=== PATIENT | male | born 1935 | race Caucasian/White ===

== ENCOUNTER 2016-06-26 22:33 | Inpatient (IN) | payer OTHER ==
[~2016-06-26] VITALS: Ht 175.3 cm; Wt 80.1 kg
--- NOTE | 2016-06-26 22:58 | NUR ---
PT BIB ALS FOR RIB PAIN TO RIGHT SIDE. PER PT HE FELL AND BROKE A RIB ON HIS RIGHT SIDE A WEEK AGO. SINCE THEN HE HAS FALLEN MULTIPLE TIMES. THIS MORNING PT FELL INTO BED AND HURT HIS RIB, AT THIS TIME PT WAS UNABLE TO GET OUT OF BED WITH HELP FROM HIS . PT SET UP ON REGULATION SUPERVISOR, PULSE OX SET UP AT THIS TIME.
--- NOTE | 2016-06-26 23:02 | NUR ---
TECH AT BEDSIDE TO TAKE PT TO IMAGING.
[2016-06-26 23:21] LABS: microscopic required? NO
[2016-06-26 23:26] LABS: urine erythrocyte NEGATIVE (NEGATIVE)
[2016-06-26 23:31] LABS: BASOPHIL % 0.2 % (0-2); PLATELET COUNT 265 x10^3mcL (130-400); RED CELL DISTRIBUTION WIDTH 14.6 % (11.5-14.5)
[2016-06-26 23:47] LABS: CALCIUM 10.1 mg/dL (8.5-10.1); CARBON DIOXIDE 24.3 mmol/L (21-32); CHLORIDE SERUM 102 mmol/L (98-107); CREATININE SERUM 1.4 mg/dL (0.7-1.3); GLUCOSE SERUM 155 mg/dL (74-106); POTASSIUM SERUM 4.6 mmol/L (3.5-5.1); SODIUM SERUM 140 mmol/L (136-145)
[2016-06-26 23:51] LABS: ALBUMIN 3.5 g/dL (3.4-5.0); ALKALINE PHOSPHATASE 95 U/L (46-116); ALT/SGPT 23 U/L (16-63); AST/SGOT 16 U/L (15-37); BILIRUBIN TOTAL 0.5 mg/dL (0.20-1.00); CHOLESTEROL 135 mg/dL (<200); CHOLESTEROL/HDL RATIO 2.9; HDL CHOLESTEROL 46 mg/dL (40-60); LIPASE 143 IU/L (73-393); TOTAL PROTEIN, SERUM 6.8 g/dL (6.4-8.2); TRIGLYCERIDES 177 mg/dL (<150)
[2016-06-26 23:55] LABS: T3 TOTAL 1.05 ng/mL
--- NOTE | 2016-06-26 23:55 | NUR ---
20G TO R WRIST INITIATED AND FLUIDS INFUSING ORDERED. SEE EMAR.
[2016-06-26 23:59] LABS: FREE T4 1.01 ng/dL (0.76-1.46); T4(THYROXINE) 8.2 ug/dL (4.7-13.3)
[2016-06-27] VITALS (8 sets, daily range): BP systolic 113–180; BP diastolic 50–88
[2016-06-27] MEDS ORDERED: PAROXETINE HCL40 M1 PO (00:59)
[2016-06-27] MEDS ORDERED: METOPROLOL TART25 M1 PO (01:01)
[2016-06-27] MEDS ORDERED: TAMSULOSIN HYD0.4 M1 PO (01:02)
[2016-06-27] MEDS ORDERED: FINASTERIDE5 M1 PO (01:03)
[2016-06-27] MEDS ORDERED: OXYBUTYNIN CHLOR5 MG PO (01:04)
[2016-06-27] MEDS ORDERED: ATORVASTATIN CA40 M1 PO (01:06)
[2016-06-27] MEDS ORDERED: METFORMIN HCL500 MG PO (01:08)
[2016-06-27] MEDS ORDERED: GLIPIZIDE5 M2 PO (01:08)
[2016-06-27] MEDS ORDERED: LANTUS SOLOS100 U/M1 SC (01:09)
[2016-06-27] MEDS ORDERED: SIN25100 PO (01:10)
[2016-06-27] MEDS ORDERED: BETIMOL5 M1 OU (01:24)
[2016-06-27] MEDS ORDERED: CLONAZEPAM0.5 MG PO (01:25)
[2016-06-27] MEDS ORDERED: EXELON4.6 MG/21 PO (01:29)
--- NOTE | 2016-06-27 02:20 | NUR ---
PT ARRIVED ON THE FLOOR FROM ER VIA GUERNEY ACCOMPNIED BY 2 NURSES. PT IS ADMITTED W/ A C/O LT RIB PAIN S/P FALL 1 WEEK AGO. PT IS AWAKE, ALERT,ORIENTED X4 W/ CLEAR SPEECH. HE DENIES HAVINF HEADACHE AND DIZZINESS. PT NOTED W/ DIFFICULTY MOVING . PT NEEDED ASSISTANCE TO TURN FROM SIDE TO SIDE IN BED. PT STATED HE DOES NOT KNOW IF HE IS ABLE TO AMBULATE AT THIS TIME. PER PT HE USES WALKER AT HOME. W/ ECCHYMOSIS NOTED TO LT RIB AREA. PT STATED HE HAS AROUND 7/10 PAIN WHEN HE MOVES BUT COMFORTABLE WHEN HE JUST LAYS IN BED. PULSES STRONG AND PALPABLE. W/ IVF NS INFUSING VIA RT WRIST. PT ORIENTED TO ROOM AND INSTRUCTED ON THE USE OF CALL LIGHT.
--- NOTE | 2016-06-27 02:30 | NUR ---
GUARDED PT TRANSPORTED ON MONITOR VIA GURNEY TO [facility] BY JASMYN LOZANO AND JASMYN WEBER. PT AAOX4, NO SOB, RR EVEN AND UNLABORED.
--- NOTE | 2016-06-27 03:45 | NUR ---
SCDS APPLIED TO BLE ORDERED FOR DVT PROPHYLAXIS.
[2016-06-27 04:02] LABS: PHOSPHOROUS 1.7 mg/dL (2.5-4.9)
--- NOTE | 2016-06-27 04:14 | NUR ---
INFORMED DR. COLBERT THAT UNABLE TO DO ORTHOSTATIC V/S BECAUSE PT W/ DIFFICULTY MOVING IN BED AND HE IS UNABLE TO GET OOB AT THIS TIME.
--- NOTE | 2016-06-27 05:00 | NUR ---
LABETALOL 10 MG SLOW IV PUSH GIVEN ORDERED. HY=698/74 HR=64. PT AWAKE AND RESTINE MORE COMFORTABLY IN BED.
--- NOTE | 2016-06-27 05:30 | NUR ---
BP =148/67 HR=65 ,RECHECKED AFTER LABETALOL 10 MG IV WAS GIVEN .
--- NOTE | 2016-06-27 06:38 | NUR ---
PT AWAKE AND WATCHING TV AT THIS TIME. HE WAS MEDICATED FOR PAIN X1 W/ GOOD RELIEF. PT REMAINS ALERT AND ORIENTED X4. IVF NS AT 20 CC/HR INFUSING VIA RT WRIST.
[2016-06-27 06:46] LABS: CALCIUM 9.7 mg/dL (8.5-10.1); CARBON DIOXIDE 25.2 mmol/L (21-32); CHLORIDE SERUM 106 mmol/L (98-107); CREATININE SERUM 1.2 mg/dL (0.7-1.3); GLUCOSE SERUM 125 mg/dL (74-106); POTASSIUM SERUM 3.7 mmol/L (3.5-5.1); SODIUM SERUM 141 mmol/L (136-145)
--- NOTE | 2016-06-27 06:56 | NUR ---
PT TRANSFERED TO MED/SURG. ORDERED. TELE MONITOR D/CD.
--- NOTE | 2016-06-27 07:31 | NUR ---
ENDORSED TO AM NURSE TO DO ORTHOSTATIC V/C WHEN PT IS MORE ABLE TO MOVE. ALSO ENDORSED TO GIVE TIMOLOL EYE DROPS AND GLIPIZIDE WHEN AVAILABLE FROM PHARMACY.
--- NOTE | 2016-06-27 08:07 | NUR ---
RECEIVED PT IN BED ALERT AND ORIENTED X4. BREATHING EVEN AND UNLABORED ON RA, NO SOB, LUNG SOUNDS CLEAR. DENIES ABD PAIN OR N/V/D. INCONTINENT OF URINE. FAINT BRUISE NOTED TO L RIB CAGE. PT DENIES PAIN OR DISCOMFORT. GENERALIZED WEAKNESS. SKIN INTACT. NO EDEMA NOTED. INSTRUCTED TO USE CALL LIGHT WHEN IN NEED OF ANY ASSISTANCE. BED ALARM ON.
--- NOTE | 2016-06-27 09:31 | NUR ---
PT COMPLAINING OF SEVERE PAIN TO NECK AND BRIANNA TOES WHILE HAVING ULTRASOUND CAROTID AND BLE DONE. MORPHINE 2MG IVP GIVEN.
--- NOTE | 2016-06-27 12:23 | NUR ---
PT LYING IN BED, AT BEDSIDE, DENIES ANY PAIN AT THIS TIME.
--- NOTE | 2016-06-27 15:22 | NUR ---
PT GOT UP WITH ASSISTANCE OF PHYSICAL THERAPY. ORTHOSTATIC VS TAKEN: SITTING BP 112/62, HR 63. SUPINE BP 114/63, HR 62. STANDING BP = 104/86, HR 66.
--- NOTE | 2016-06-27 16:35 | NUR ---
P.T. NOTES Pt CLEARED PER RN FOR PT EVAL. FIRST ATTEMPT TO WORK WITH PATIENT, HE WAS N/A D/T ECHO BEING DONE IN ROOM. 1 PVE RETURNED IN PM FOR PT EVAL. Pt WAS ADMITTED TO HOSPITAL S/P L RIB PAIN, S/P L POSTERIOR 8TH RIB FRACTURE. HE LIVES AT HOME W/ AND REQUIRES ASSIST WITH ADLs, AMBU W/FWW/4WW/SPC BUT ADMITS TO H/O MANY FALLS. S: Pt PRESENTS AWAKE, ALERT AND AGREEABLE FOR PT EVAL. DENIES PAIN AT REST, BUT APPROX 3/10 L RIB PAIN WITH MOVEMENT. RN IN ROOM AWARE. Pt W/ABDOMINAL BINDER IN PLACE FOR OOB ACTIVITIES. O: PLEASE SEE EVAL FOR DETAILS. Pt REQUIRES MOD-MAX A OF 2 FOR BED MOB, TRANSFERS AND GT WITH FWW FOR ONE LATERAL STEP ALONG BEDSIDE. Pt EDU ON ROLE OF PT, SAFETY, FALL PREVENTION W/FAIR RETURN. SAFELY ASSISTED BTB WITH ALL LINES INTACT, CALL LIGHT AND TRAY IN REACH, HOB ELEVATED. COOPERATIVE AND APPRECIATIVE OF CARE. NURSING IN ROOM. VS: BP 114/63, HR 62BPM, SP02 98% ON RA A: Pt TOLERATED PT WELL. HIGH FALL RISK D/T DECLINE IN FUNCTION. PRESENTS W/GENERALIZED WEAKNESS AND RETROLEANS UPON SITTING UP EOB AND STANDING. IMPAIRED STATIC AND DYNAMIC BALANCE. NBOS. MANUAL ASSIST TO TAKE 1 LATERAL STEP, FATIGUES QUICKLY W/LIMITED ENDURANCE NOTED. Pt WILL BENEFIT FROM PT DURING ACUTE STAY AND REHAB POST ACUTE STAY. WILL REQUIRE 2PA FOR PROGRESSING OOB ACTIVITIES. P: POC REVIEWED WITH LOAN ANALYST. PLEASE SEE PATIENT ONCE DAILY, 5X/WK,1WEEK. EVAL 38' (2) 2PA FOR PHYSICAL ASSIST, SAFETY [id number]; [id number] FR 16 IN Pt PROVIDED W/SUPINE THERA EX AND PERFORMED X 10 REPS BILAT: GLUT SETS, QUAD SETS, ANKLE DF/PF/INV/ EV, SLR. DEMO GOOD LEARNING. EX 10' [phone]
--- NOTE | 2016-06-27 17:45 | NUR ---
PT LYING IN BED WITH AT BEDSIDE. PT DROWSY AT THIS TIME. DENIES PAIN OR DISCOMFORT. HAD SMALL LOSE BM X1 THIS SHIFT, ZGUARD CREAM APPLIED TO BUTTOCKS. CALL LIGHT WITHIN REACH.
--- NOTE | 2016-06-27 21:46 | NUR ---
SCHEDULED MEDICATIONS ADMINISTERED. NO SWALLOWING DIFFICULTY. CALL LIGHT WITHIN REACH AND RE-EDUCATED TO CALL FOR NURSING ASSISTANCE. PATIENT NOTED TO BE SLIGHTLY FORGETFUL AND REQUIRES CONTINUED EDUCATION FOR SAFETY.
--- NOTE | 2016-06-27 22:12 | NUR ---
PATIENT NOTED TO BE FORGETFUL, STATED THAT HE HAS BEEN CALLING FOR NURSING ASSISTANCE FOR A COUPLE OF HOURS AND NO ONE HAS BEEN AROUND. ASURED PATIENT THAT I WAS IN ROOM LESS THAN AN HOUR AGO TO HELP MAT REPOSITION PATIENT AFTER BM. RE-EDUCATED ABOUT USE OF CALL LIGHT
[2016-06-28] VITALS (7 sets, daily range): BP systolic 125–177; BP diastolic 62–75
--- NOTE | 2016-06-28 00:34 | NUR ---
PATIENT ATTEMPTED TO REMOVE ALL BLANKETS AND CLOTHING AND STATED THAT HE WAS FEELING HOT. PREVIOUS IV ACCIDENTALLY REMOVED BY PATIENT. NEW IV SITE TO LFA 22GUAGE. PATIENT TOLERATED WELL AND RE-EDUCATED ABOUT USING CALL LIGHT WITHIN REACH.
[2016-06-28 06:19] LABS: BASOPHIL % 0.5 % (0-2); PLATELET COUNT 218 x10^3mcL (130-400)
--- NOTE | 2016-06-28 06:32 | NUR ---
SCHEDULED MEDICATIONS ADMINISTERED. NO SWALLOWING DIFFICULTY. SAFETY MEASURES IN PLACE AND ABD BINDER IN PLACE TO ABD. WILL ENDORSE TO AMENA VINES.
[2016-06-28 06:40] LABS: RED CELL DISTRIBUTION WIDTH 14.6 % (11.5-14.5)
[2016-06-28 06:43] LABS: CALCIUM 9.5 mg/dL (8.5-10.1); CARBON DIOXIDE 25.9 mmol/L (21-32); CHLORIDE SERUM 107 mmol/L (98-107); CREATININE SERUM 1.1 mg/dL (0.7-1.3); GLUCOSE SERUM 140 mg/dL (74-106); PHOSPHOROUS 3.4 mg/dL (2.5-4.9); POTASSIUM SERUM 4.3 mmol/L (3.5-5.1); SODIUM SERUM 140 mmol/L (136-145)
--- NOTE | 2016-06-28 07:45 | NUR ---
AOX3, DENIES HEADACHE. NO TELE, DENIES CP. LUNGS CIM BILAT BB, DENIES DIFFICULTY BREATHING, IS WITHIN REACH AND REINFORCED IN UTILIZING. PERIPHERAL PULSES PALPABLE, EQUAL GLOBAL COORDINATOR STRENGTH, NO EDEMA NOTED. BOWEL SOUNDS ACTIVE, STATES LAST BM 2 DAYS AGO NORMAL. SKIN INTACT. DENIES NUMBNESS/TINGLING. GRIMACES TO PAIN UPON MOVEMENT, LOCALIZED PAIN TO LEFT SIDE RIBS. IV ACCESS TO LFA RUNNING NS AT 20ML/HR INFUSING WELL SITE WNL. CALL LIGHT WITHIN REACH AND REINFORCED TO UTILIZE FOR ASSISTANCE. BED AT LOWEST POSITION WITH HOB ELEVATED, BREAKFAST MEAL TRAY SET UP.
--- NOTE | 2016-06-28 08:35 | NUR ---
DR WILDER AND TEAM IN ROOM. PATIENT TO BE SEEN BY DR SOL FOR REHAB PLAN. AT BEDSIDE. PATIENT COOPERATIVE WITH PLAN OF CARE.
--- NOTE | 2016-06-28 08:45 | NUR ---
DUE MEDICATIONS GIVEN, NO PROBLEMS SWALLOWING OBERSVED. AT BEDSIDE. INFORMED OF NEED TO VERIFY HOME MEDICATION RIVASTIGMINE WITH PHARMACY, WILL BRING IN. PAIN MEDICATION OFFERED TO PATIENT, PATIENT REFUSED AT THIS TIME, STATES PAIN ONLY WHEN MOVING.
--- NOTE | 2016-06-28 09:30 | NUR ---
DR SOL AT BEDSIDE.
--- NOTE | 2016-06-28 09:47 | NUR ---
PHYSICAL THERAPISTS AT BEDSIDE.
--- NOTE | 2016-06-28 10:30 | NUR ---
PER PHYSICAL THERAPIST, PATIENT'S LEFT FOOT IS GOING INWARD WHILE AMBULATING, STATES NOT USUAL FOR THAT TO HAPPEN. DR MIRZA MADE AWARE. PATIENT DENIES NUMBNESS/TINGLING, PEDAL PULSES PALPABLE AND EVEN. ABLE TO WIGGLE TOES. STATES CHRONIC PAIN TOLERABLE TO BILAT FEET.
--- NOTE | 2016-06-28 14:36 | NUR ---
PT NOTES TIME [id number] S: CLEARED BY RN FOR P.T. TX. PATIENT IS AWAKE & ALERT IN A SEMI MOTTA POSITION IN BED. AGREEABLE TO P.T. TX. PRESENT AT BEDSIDE. C/O PAIN ON L RIB 09/03. RN IS AWARE. O: VITALS AT REST BP 161/68, HR 52 BPM, SPO2 ON RA 93% BED MOBILITY: SUPINE<>SIT VIA LOGROLL RIGHT MAX ASSIST. VC/TC GIVEN W/ PROPER SEQUENCE FOR BED MOBILITY TRAINING & USE OF SIDERAILS TO ASSIST. TRANSFER: SIT<>STAND W/ FWW MAX ASSIST OF 2 X 3 ATTEMPTS. PATIENT L ANKLE SUPINATES IN STANDING. REQUIRES TC/VC TO CORRECT L ANKLE INTO NEUTRAL POSITION, BUT PATIENT HAS DIFFICULTY MAINTAINING. EASILY FATIGUES. REQUIRES VC W/ PROPER HAND/FEET PLACEMENT DURING SIT<>STAND TRANSFERS. ADDITIONALLY PATIENT HAS BILAT PES CAVUS. GAIT: STOOD ONLY W/ FWW MAX ASSIST OF 2. UNABLE TO INITATE STEPS AT THIS TIME DUE TO PATIENT HAS DIFFICULTY MAINTAINING L ANKLE NEUTRAL. EDUCATED PATIENT ON SAFETY FOR FALL PREVENTION & HEP W/ P UNDERSTANDING. COOPERATIVE & APPRECIATIVE OF CARE. THER EX IN SITTING ANKLE EVERSION W/ 10 SEC HOLD, ANKLE DF/PF, KNEE FLEX/EXT X 15 REPS W/ REST BREAKS IN BETWEEN. PATIENT IS SAFELY & COMFORTABLY IN A SEMI MOTTA POSITION IN BED W/ CALL BUTTON & TABLE IN REACH. LEFT IN CARE OF . BED ALARM ON. RN NOTIFIED. P: DISCUSSED W/ PRIMARY PHYSICAL THERAPIST TA15',TE9',2PA(2)
--- NOTE | 2016-06-28 15:18 | NUR ---
PATIENT FOUND WITH GOWN OFF AND ABDOMINAL BINDER REMOVED. PATIENT STATES "I WAS FEELING HOT". KNOWS HE IS IN THE HOSPITAL. A/C TURNED ON. ABDOMINAL BINDER PLACED BACK ON AND INFORMED OF THE IMPORTANCE TO KEEP ON. PATIENT VERBALIZED UNDERSTANDING. GOWN REPLACED. CALL LIGHT WITHIN REACH.
--- NOTE | 2016-06-28 18:40 | NUR ---
AT BEDSIDE ASSISTING WITH DINNER MEAL, PATIENT TOLERATING WELL. PATIENT CALM, NO SIGN OF DISTRESS AT THIS TIME. RIB BELT IN PLACE, GOWN OFF. PATIENT STATES FEELING WARM, STATES HE'S NORMALLY LIKE THAT. A/C ON, AFEBRILE. NO OTHER SIGNFICANT CHANGE IN CONDITION. WILL CONT TO MONITOR AND ENDORSE TO NOC RN.
--- NOTE | 2016-06-28 19:10 | NUR ---
BEDSIDE REPORT DONE. SEEN PATIETN AWAKE, ALERT, ORIENTED X3, FORGETFUL AT TIMES. HX OF PARKINSON'S. BREATHING EASY ON ROOM AIR, NO SOB OR ACUTE DISTRESS NOTED. DIMINISHED LUNG SOUND. WEARING ABDOMINAL BINDER. STS NO PAIN AT THIS TIME. IV ACCESS TO LFA INTACT AND PATENT. ON NS AT 20ML/HR. PLAN OF CARE DISCUSSED. CALL LIGHT REINSTRUCTED AND PLACED WITHIN REACH. BED ALARM ON. SIDERAILS UP X3. WILL CONTINUE TO MONITOR.
--- NOTE | 2016-06-28 21:54 | NUR ---
STS PAIN TO LEFT SIDE OF RIB, BP 177/69, HR 59, NORCO PO GIVEN. WILL CONTINUE TO MONITOR.
[2016-06-29 03:17] VITALS: BP 106/48
--- NOTE | 2016-06-29 03:19 | NUR ---
SLEEPING AT THIS TIME. NO ACUTE DISTRESS NOTED.
[2016-06-29 06:32] VITALS: BP 143/59
--- NOTE | 2016-06-29 06:42 | NUR ---
NO ACUTE DISTRESS THROUGHOUT THE SHIFT. VSS. NORCO PO GIVEN X1 FOR RIB PAIN WITH GOOD RELIEF. COOPERATIVE WITH CARE. AM MEDS GIVEN, NO ASPIRATION NOTED. IVF NS CONTINUED AT 20ML/HR.
[2016-06-29 06:53] LABS: CALCIUM 9.6 mg/dL (8.5-10.1); CARBON DIOXIDE 27.2 mmol/L (21-32); CHLORIDE SERUM 107 mmol/L (98-107); CREATININE SERUM 1.1 mg/dL (0.7-1.3); GLUCOSE SERUM 140 mg/dL (74-106); POTASSIUM SERUM 4.1 mmol/L (3.5-5.1); SODIUM SERUM 141 mmol/L (136-145)
[2016-06-29 07:11] LABS: BASOPHIL % 0.7 % (0-2); PLATELET COUNT 215 x10^3mcL (130-400); RED CELL DISTRIBUTION WIDTH 14.5 % (11.5-14.5)
--- NOTE | 2016-06-29 08:00 | NUR ---
RECEIVED PATIENT AWAKE AND IS FORGETFUL. AT BEDSIDE AND SUPPORTIVE WIT CARE. APTIENT WITH HISTOYR OF PARKINSONS AND DEMENTIA AND WITH ABDOMINAL BINDER IN PLACE DJUET O EIGHTH REIVB FRACTURE. PATIENT WITH IV INTAC AND CONTINEUDTO MONITOR BLOOD SUGAR AND AT 129 THIS AM. APTIENT AHS NTOED ATELECTASIS TO THE LEFT LUNG BASE AND WITH FINE RALES TO THE UPPER BILATERAL LOBES HEARD. PATIENT AHS NO COUGH AND PATEITNH AHS BEEN ON BEDREST AND UP WITH PHYSICAL THERAPY INDICATED. VITALS AT THIS TIME AT 97.1, 56, 18, 143/59, 94% ON ROOM AIR. PATIENTHAS EJECTION FRACTION OF 60% AND TROPONIN IS NEGATIVE. APTIETN AHS NOTED LABD OF BUN AT 28.0, AIC AT 129, AND ALBUMINA AT 3.0. ENCOURAGED TO DEEP BREATH OFTEN AND WILL CONTINUE TO MONITOR INDICATED. Z GUARD APPLED TO THE BUTTOCKS REDNESS INDICATED.
--- NOTE | 2016-06-29 08:30 | NUR ---
SEEN BY THE INTERNS AND DR WILDER AND PLAN OF CARE DISCUSSED. PATIENT IS FOR REHAB EVALUATION WITH ANTOINETTE BERGERON AND POSSIBLE DISCHARGE FOR REHAB PLANNED.
[2016-06-29 08:45] VITALS: BP 141/62
--- NOTE | 2016-06-29 13:04 | NUR ---
BACK AT BEDSIDE AND PATIENT HAS BEEN UP WITH PHYSICAL THERAPY AND TOLERATED WELL AND BLOOD SUGAR AT LUNCH AT 230 AND GAVE 6 UNITS OF REGULAR ORDERED.
--- NOTE | 2016-06-29 15:37 | NUR ---
PT NOTES TIME [id number] S: CLEARED BY RN FOR P.T. TX. PATIENT IS AWAKE & ALERT IN A SEMI MOTTA POSITION IN BED. AGREEABLE TO P.T. TX. C/O PAIN ON L RIB 09/03. RN IS AWARE. O: VITALS AT REST BP 138/48, HR 52 BPM, SPO2 ON RA 93% BED MOBILITY: SUPINE<>SIT VIA LOGROLL W/ MAX ASSIST OF 2. VC GIVEN W/ LOGROLLING TECHNIQUE & USE OF SIDERAILS TO ASSIST W/ BED MOBILITY. WHILE SEATED PATIENT STILL CONTINUES TO RETROLEAN, BUT CAN CORRECT WHEN GIVEN TC/VC. TRANSFER: SIT<>STAND W/ FWW MAX ASSIST OF 2. VC GIVEN W/ PROPER HAND/FEET PLACEMENT FOR SIT<>STAND DUE TO PATIENT L FOOT SUPINATES. GAIT: 5 LATERAL STEPS W/ FWW MAX ASSIST OF 2. PATIENT HEAVILY LATERALLY LEANS TO THE LEFT. REQUIRES VC W/ WT. SHIFTING R TO CORRECT POSITION TO NEUTRAL. REQUIRES VC FOR PROPER GAIT SEQUENCE. DECREASE FOOT CLEARANCE. PATIENT HAS PES CAVUS. PATIENT IS UNSTEADY DURING GAIT. EDUCATED ON SAFETY FOR FALL PREVENTION & IMPORTANCE OF THERAPY W/ F UNDERSTANDING. PATIENT IS FORGETFUL. COOPERATIVE & APPRECIATIVE OF CARE. THER EX IN KNEE FLEX/EXT, HIP FLEXION, ANKLE DF/PF/EVERSION, ELBOW FLEX/EXT X 10 REPS W/ REST BREAKS IN BETWEEN. PATIENT IS SAFELY & COMFORTABLY IN A SEMI MOTTA POSITION IN BED W/ CALL BUTTON & TABLE IN REACH. BED ALARM ON. SCD REAPPLIED. RN NOTIFIED. P: DISCUSSED W/ PRIMARY PHYSICAL THERAPIST GT10',TA20',TE8',2PA(2)
[2016-06-29 18:02] VITALS: BP 180/71
--- NOTE | 2016-06-29 19:30 | NUR ---
RECEIVED PT IN BED AWAKE WATCHING TV. HE IS ALERT,ORIENTED X4. LUNG SOUNDS CLEAR. NO SOB NOTED. HE DENIED HAVING PAIN AT THIS TIME. W/ BINDER TO CHEST IN PLACE. IVF NS AT 20 CC/HR INFUSING VIA LTFA. CALL LIGHT W/IN REACH.
--- NOTE | 2016-06-29 19:48 | NUR ---
HARPREETETN CONFUSED AT TIMES AND USING THE PHONE HIS CALL LIGHT AND UNABLE TO COMMUNICATE WITH STAFF ON HIS NEEDS. PATIENT HAS ELEVATED BP AND GAVE NITRO ORDERED AND WILL ENDORSE TO THE NEXT SHIFT INDICATED.
[2016-06-29 20:45] VITALS: BP 178/83
--- NOTE | 2016-06-29 21:03 | NUR ---
PT MEDICATED W/ NITRO 0.4 SL FOR NR=428/83 HR=54. PT W/ NO C/O DISCOMFORT.
[2016-06-29 21:45] VITALS: BP 160/69
--- NOTE | 2016-06-29 21:45 | NUR ---
BP RECHECKED =160/69 HR=46 ( AFTER NITRO 0.4 SL).
[2016-06-30] VITALS (7 sets, daily range): BP systolic 121–188; BP diastolic 46–78
--- NOTE | 2016-06-30 | NUR ---
PT APPEARS TO BE SLEEPING COMFORTABLY.
--- NOTE | 2016-06-30 05:17 | NUR ---
PT SLEPT FAIRLY. HE REMAINS ALERT AND ORIENTED. NO RESP. DISTRESS AND REMAINS ON RA. HE HAD NO C/O PAIN. BINDER TO CHEST AREA IN PLACE. HE HAD NO BM THIS SHIFT. IVF NS AT 20 CC/HR INFUSING VIA LTFA.
--- NOTE | 2016-06-30 05:29 | NUR ---
PT SLEPT FAIRLY. HE REMAINS ORIENTED. NO RESP. DISTRESS NOTED AND PT REMAINS ON RA. HE HAD NO C/O PAIN. ABDL BINDER IN PLACE. NO BM NOTED THIS SHIFT. PT USES URINAL BUT INCONTINENT AT TIMES. IVF NS AT 20 CC/HR INFUSING VIA LTFA.
--- NOTE | 2016-06-30 06:05 | NUR ---
PT MEDICATED W/ NITRO 0.4 SL FOR PM=989/62 HR=54 . WILL CONTINUE TO MONITOR.
[2016-06-30 06:07] LABS: BASOPHIL % 0.4 % (0-2); PLATELET COUNT 232 x10^3mcL (130-400); RED CELL DISTRIBUTION WIDTH 14.3 % (11.5-14.5)
[2016-06-30 06:32] LABS: CALCIUM 9.7 mg/dL (8.5-10.1); CHLORIDE SERUM 106 mmol/L (98-107); CREATININE SERUM 1.1 mg/dL (0.7-1.3); GLUCOSE SERUM 154 mg/dL (74-106); POTASSIUM SERUM 4.3 mmol/L (3.5-5.1); SODIUM SERUM 138 mmol/L (136-145)
--- NOTE | 2016-06-30 06:40 | NUR ---
BP RECHECKED =121/46 HR=56 ( AFTER NITRO 0.4 SL). PT RESTING COMFORTABLY IN BED.
--- NOTE | 2016-06-30 08:30 | NUR ---
SEE BY THE INTERNS AND DR WILDER AND PLAN OF CARE DISCUSSED.
--- NOTE | 2016-06-30 11:26 | NUR ---
PATIENT RECEIVED ALERT ADN ORIENTED TIMES TWO. PATIENT. HAS CLEARER BREATH SOUNDS TODAY AND IV INTACT AND PATIENT HAS BEEN ABLE TO TOLERATE DIET AND FLUIDS WELL WITH NO INDICATION OF ASPIRATION OR COUGH. ARRIVED AT THIS TIME AND SAT AT BEDSIDE. PATIENT HAS NO COMPLINTS OF PAIN AND PATIENT WAS WORKED WITH BY PT YEARSDAY AND THEY HAS EVALED THE PATIENT FOR EVAL FORM
--- NOTE | 2016-06-30 13:06 | NUR ---
PATIENTS FAMILY WANTS TO SPEAK WITH DR MIRZA AND WAS SEEN BY THE ANTOINETTE CHAPA. AWAITING WORD ON PLACEMENT.
--- NOTE | 2016-06-30 13:36 | NUR ---
PT NOTES TIME [id number] S: CLEARED BY RN FOR P.T. TX. PATIENT IS AWAKE & ALERT IN A SEMI MOTTA POSITION IN BED. AGREEABLE TO TX. C/O PAIN ON L RIB 10. RN AWARE. O: VITALS AT REST BP 122/60, HR 55 BPM, SPO2 ON RA 96% BED MOBILITY: SUPINE<>SIT VIA LOGROLLING W/ MOD ASSIST OF 2. VC GIVEN W/ SEQUENCE FOR LOGROLLING TECHNIQUES TO RIGHT & TO USE SIDERAILS TO ASSIST W/ BED MOB. WHILE SITTING AT EOB PATIENT LATERALLY LEANS TO THE LEFT. TRANSFER: SIT<>STAND W/ FWW MAX ASSIST OF 2 X 2 ATTEMPTS. PATIENT'S L FOOT STILL CONTINUES TO SUPINATE. PATIENT ABLE TO CORRECT WHEN GIVEN VERBAL CUES. IN STANDING PATIENT LATERAL LEANS TO THE LEFT. REQUIRES WT. SHIFTING ACTIVITIES TO IMPROVE COG TO NEUTRAL. GAIT: 5 LATERAL STEPS W/ FWW MAX ASSIST OF 2. PATIENT HAS A PES CAVUS. DECREASE GAIT VELOCITY. PATIENT ABLE TO INITIATE STEPS WHEN GIVEN ASSISTANCE W/ WT. SHIFTING. REQUIRES VC TO IMPROVE FOOT CLEARANCE. GAIT DISTANCE LIMITED DUE TO FATIGUE. PATIENT IS UNSTEADY. EDUCATED PATIENT ON HEP & SAFETY FOR FALL PREVENTION W/ F UNDERSTANDING. PATIENT IS FORGETFUL AT TIMES. COOPERATIVE & APPRECIATIVE OF CARE. THER EX ANKLE DF/PF, KNEE FLEX/EXT, ELBOW FLEX/EXT, HIP FLEXION, HIP ABD/ADD X 10 REPS. PATIENT IS SAFELY & COMFORTABLY IN A SEMI MOTTA POSITION IN BED W/ CALL BUTTON & TABLE IN REACH. BED ALARM ON. RN NOTIFIED. P: DISCUSSED W/ PRIMARY PHYSICAL THERAPIST GT15',TA15',TE10',2PA(2),PVE(CLEAN UP D/T PATIENT URINATE)
--- NOTE | 2016-06-30 15:47 | NUR ---
RETURNED TO BEDSIDE AND IS VERY ANXIOUS TO SEE HER SPOUSE GO TO THE [facility], THERE IS NO ORDER YET FOR DISCHARGE BUT THE PATIENT WAS INDEED EVALED AND ACCEPTED IT APPEARS BY THE EVALUATION EARLIER TODAY. AWAITING BED AVAILABILTY AND ORDERS AT THIS TIME.
--- NOTE | 2016-06-30 19:30 | NUR ---
RECEIVED PT IN BED AWAKE AND RESTING QUIETLY IN BED. HE IS ALERT,ORIENTED X3. LUNG SOUNDS CLEAR . NO SOB NOTED ON RA. BOWEL SOUNDS ACTIVE. W/ ABDL BINDER IN PLACE. PT DENIED PAIN. NO EDEMA NOTED. W/ IVF NS AT 20 CC/HR VIA LTFA. CALL LIGHT W/IN REACH.
--- NOTE | 2016-06-30 23:54 | NUR ---
PT MEDICATED W/ HYDRALAZINE 10 MG IV FOR [place]=295/72 HR=52. PT AWAKE AND A LITTLE COFUSED AT THIS TIME. REORIENTED HIM TO TIME, PLACE AND SITUATION. WILL CONTINUE TO MONITOR.
[2016-07-01 00:40] VITALS: BP 143/72
--- NOTE | 2016-07-01 00:40 | NUR ---
BP NIJUNY[place]A=112/72 HR=72 (AFTER HYDRALAZINE 10 MG IV).
--- NOTE | 2016-07-01 02:23 | NUR ---
INFORMED DR. CHEW THAT PT COMPLAINING OF PAIN TO HIS SUPRAPUBIC AREA BEFORE AND AFTER HE URINATES. PT WAS GIVEN NORCO. ALSO INFOMRED THAT PT HAS NOT HAD A BOWEL MOVEMENT FOR 4 DAYS.
--- NOTE | 2016-07-01 04:30 | NUR ---
PT STILL AWAKE AND CONFUSED. REORIENTED HIM REPEATEDLY TO SURROUNDINGS AND SITUATION.
--- NOTE | 2016-07-01 05:51 | NUR ---
PT AWAKE AND REMAINS CONFUSED. HE WAS REORIENTED REPEATEDLY BUT VERY FORGETFUL. NO EPISODE OF SOB. HE WAS MEDICATED FOR PAIN X1 W/ RELIEF. ABDL BINDER KEPT IN PLACE. IVF NS AT 20 CC/HR INFUSING VIA LTFA. ALL NEEDS ATTENDED TO. SAFETY MEASURES MAINTAINED.
[2016-07-01 06:07] LABS: BASOPHIL % 0.3 % (0-2); PLATELET COUNT 229 x10^3mcL (130-400); RED CELL DISTRIBUTION WIDTH 14.3 % (11.5-14.5)
[2016-07-01 06:36] VITALS: BP 134/67
[2016-07-01 07:05] LABS: CALCIUM 9.8 mg/dL (8.5-10.1); CARBON DIOXIDE 23.7 mmol/L (21-32); CHLORIDE SERUM 105 mmol/L (98-107); CREATININE SERUM 1.2 mg/dL (0.7-1.3); GLUCOSE SERUM 182 mg/dL (74-106); SODIUM SERUM 139 mmol/L (136-145)
--- NOTE | 2016-07-01 08:08 | NUR ---
DR. WILDER AND RESIDENTS MAKING ROUNDS, PLAN OF CARE DISCUSSED.
--- NOTE | 2016-07-01 08:34 | NUR ---
PT RECEIVED DURING CHANGE OF SHIFT, A/OX3, NO TELE, DENIES CHEST PAIN, PULSES PRESENT NO EDEMA NOTED, SCD'S IN PLACE, LUNGS CTA ON RA, DENIES SOB, BREATHING EVEN AND UNLABORED, BOWEL SOUNDS ACTIVE, LBM 06/26/16, VP CLINICAL RN ADMINISTERED LAXATIVE, INCONTINENT OF URINE, GENERALIZED WEAKNESS, ABD BINDER OVER RIB AREA, ECCHYMOSIS TO LT RIB AREA, REDNESS TO SACRAL AREA, DENIES PAIN AT THIS TIME, IV TO LFA INFUSING NS AT 20ML/HR, CALM AND COOPERATIVE AT THIS TIME, CALL LIGHT WITHIN REACH, WILL CONTINUE TO MONITOR.
[2016-07-01 09:05] VITALS: BP 103/52
--- NOTE | 2016-07-01 09:30 | NUR ---
PT DENIES PAIN, DENIES SOB, REPORTS "THIS MORNING WHEN I WOKE UP I CHECKED MY CELL PHONE, I HAD TWO MESSAGES WHICH WERE COMPLETELY INCOHERENT.", "THIS MORNING HE TOLD ME HE WAS VISITED BY HIS FATHER AND PEOPLE THAT HAVE PASSED, AND HIS OLD FRIEND FROM [facility].", MED EDUCATION GIVEN, CALL LIGHT WITHIN REACH, WILL CONTINUE TO MONITOR.
--- NOTE | 2016-07-01 10:35 | NUR ---
PT DENIES SOB, DENIES PAIN, AT BEDSIDE, CALL LIGHT WITHIN REACH, WILL CONTINUE TO MONITOR.
--- NOTE | 2016-07-01 11:21 | NUR ---
PT DENIES PAIN, DENIES SOB, BS 161, CALL LIGHT WITHIN REACH, WILL CONTINUE TO MONITOR.
--- NOTE | 2016-07-01 12:09 | NUR ---
PT DENIES PAIN, DENIES SOB, PT WAS TAKING GOWN OFF WHEN RN ARRIVED IN ROOM, GOWN PLACED BACK ON PT, CALL LIGHT WITHIN REACH, WILL CONTINUE TO MONITOR.
--- NOTE | 2016-07-01 13:31 | NUR ---
PT DENIES PAIN, DENIES SOB, AT BEDSIDE, STATES "I'VE NEVER SEEN HIM TALK THIS MUCH.", CALL LIGHT WITHIN REACH, WILL CONTINUE TO MONITOR.
--- NOTE | 2016-07-01 14:32 | NUR ---
PT DENIES SOB, DENIES PAIN, AT BEDSIDE, CALL LIGHT WITHIN REACH, WILL CONTINUE TO MONITOR.
--- NOTE | 2016-07-01 15:13 | NUR ---
PT DENIES PAIN, DENIES SOB, AT BEDSIDE, CALL LIGHT WITHIN REACH, WILL CONTINUE TO MONITOR.
--- NOTE | 2016-07-01 15:27 | NUR ---
PT NOTES TIME [id number] S: CLEARED BY RN FOR P.T. TX. PATIENT IS AWAKE & ALERT IN A SEMI MOTTA POSITION IN BED. AGREEABLE TO P.T. TX. C/O PAIN R KNEE, L RIB 09/03. RN IS AWARE. O: VITALS AT REST BP 136/59, HR 59 BPM, SPO2 ON RA 95% BED MOBILITY: SUPINE<>SIT VIA LOGROLL MOD/MAX ASSIST OF 2. STILL CONTINUES TO REQUIRE VC W/ USE OF SIDERAILS TO ASSIST DURING BED MOBILITY & STEP BY STEP SEQUENCE FOR BED MOBILITY. IN SITTING PATIENT STILL CONTINUES TO LATERALLY LEAN TO THE RIGHT & POSTERIORLY LEAN. PATIENT WILL CORRECT WHEN GIVEN VC/TC. TRANSFER: SIT<>STAND W/ FWW MAX ASSIST OF 2 X 4 ATTEMPTS. IN STANDING PATIENT STILL CONTINUES TO HEAVILY LATERALLY LEAN TO THE LEFT. ADDITIONALLY, PATIENT RETROLEANS AT TIMES. GIVEN VC/TC TO CORRECT PATIENT'S COG FORWARD & TO THE RIGHT. EASILY FATIGUES. WT. SHIFTING ACTIVITIES IN STANDING. PATIENT L FOOT STILL SUPINATE & HAS BILAT PES CAVUS. GAIT: STOOD W/ FWW MAX ASSIST OF 2. PATIENT UNABLE TO INITIATE STEPS AT THIS TIME. EDUCATED PATIENT ON SAFETY FOR FALL PREVENTION, HEP FOR STRENGTHENING W/ GOOD UNDERSTANDING. COOPERATIVE & APPRECIATIVE OF CARE. THER EX ANKLE DF/PF/EVERSION, KNEE FLEX/EXT, HIP FLEXION, HIP ABD/ADD, ELBOW FLEX/EXT X 10 REPS. PATIENT IS SAFELY & COMFORTABLY IN A SEMI MOTTA POSITION IN BED W/ CALL BUTTON & TABLE IN REACH. RN NOTIFIED. P: DISCUSSED W/ PRIMARY PHYSICAL THERAPIST [id number]',[id number]',[id number](2)
--- NOTE | 2016-07-01 16:55 | NUR ---
PT DENIES PAIN, DENIES SOB, BREATHING EVEN AND UNLABORED, CALL LIGHT WITHIN REACH, AT BEDSIDE, WILL CONTINUE TO MONITOR.
[2016-07-01 17:07] VITALS: BP 133/70
--- NOTE | 2016-07-01 17:28 | NUR ---
PT ASLEEP, NO INDICATION OF PAIN, BREATHING EVEN AND UNLABORED, CALL LIGHT WITHIN REACH, WILL CONTINUE TO MONITOR.
[2016-07-01 18:19] VITALS: BP 133/70
--- NOTE | 2016-07-01 18:42 | NUR ---
PT'S AT BEDSIDE, DISCHARGE INSTRUCTIONS GIVEN, ALL QUESTIONS ANSWERED, PT'S SIGNED FOR CONSENT, WAITING ON TRANSPORTATION FOR PT DISCHARGE.
--- NOTE | 2016-07-01 19:19 | NUR ---
ANTOINET[facility] BERGERON CALLED, REPORT GIVEN TO MARC VINES.
== END 2016-07-01 20:05 | DRG 56 ==
LOC: ED 22:33 → MU 06-27 00:40 → DU 06-27 00:40 → MU 06-27 06:52
PROVIDERS: Family Medicine; Specialist; ADMIT Family Medicine
DX: G20 Parkinson's disease (principal); N17.0 Acute kidney failure with tubular necrosis; I16.1 Hypertensive emergency; E44.0 Moderate protein-calorie malnutrition; D68.69 Other thrombophilia; I42.9 Cardiomyopathy, unspecified; J98.11 Atelectasis; S22.32XD Fracture of one rib, left side, subsequent encounter for fracture with routine healing; S09.90XA Unspecified injury of head, initial encounter; E11.65 Type 2 diabetes mellitus with hyperglycemia; I27.2 Other secondary pulmonary hypertension; I25.10 Atherosclerotic heart disease of native coronary artery without angina pectoris; E78.1 Pure hyperglyceridemia; F32.9 Major depressive disorder, single episode, unspecified; R32 Unspecified urinary incontinence; H40.10X0 Unspecified open-angle glaucoma, stage unspecified; I25.2 Old myocardial infarction; Z95.1 Presence of aortocoronary bypass graft; Z95.5 Presence of coronary angioplasty implant and graft; Z79.84 Long term (current) use of oral hypoglycemic drugs; Z79.4 Long term (current) use of insulin; Z91.81 History of falling; W01.0XXD Fall on same level from slipping, tripping and stumbling without subsequent striking against object, subsequent encounter
CPT/HCPCS: 82962; 83880; 84439; 94150; 97110-GP; 97116-GP; 97530-GP; J0360; J2270; J3490; J7030; J8597; Q0092